=== PATIENT | male | born 1985 | race Caucasian/White ===

== ENCOUNTER 2024-05-27 20:58 | Emergency (ER) | payer BC ==
[~2024-05-27] VITALS: Ht 188 cm; Wt 83.0 kg
[2024-05-27 21:05] VITALS: BP_SYST 140; PULSE 74; RESP 18; TEMP 98.4; O2SAT 96
[2024-05-27] MEDS: AMOXICILLIN/POTASSIUM CLAV 875 MG TABLET PO ONE (22:46)
[2024-05-27] MEDS ORDERED: AUG875 PO (23:41)
[2024-05-27 23:47] VITALS: BP_SYST 140; PULSE 74; RESP 18; TEMP 98.4; O2SAT 96
== END 2024-05-27 23:47 | disposition home or self-care (01) ==
LOC: SED 20:58
DX: S01.21XA Laceration without foreign body of nose, initial encounter (principal); W54.0XXA Bitten by dog, initial encounter; Y93.89 Activity, other specified; Y92.89 Other specified places as the place of occurrence of the external cause; Y99.8 Other external cause status
CPT/HCPCS: 99283